=== PATIENT | male | born 1975 | race Caucasian/White ===

== ENCOUNTER → 2019-02-22 | Outpatient (REF) ==
[~2019-02-22] MED LIST: CEPH-13 PO; FAMO20TA28 PO; HYDR-385 PO; IBUP-1618 PO
== END ==
LOC: AUD 11:00
PROVIDERS: ATTEND Internal Medicine
DX: Z01.12 Encounter for hearing conservation and treatment (principal)
CPT/HCPCS: 92552

== ENCOUNTER → 2019-04-02 | Outpatient (CLI) | payer BC | LOC: LAB 13:08 | PROVIDERS: ATTEND Surgery | DX: L72.0 Epidermal cyst (principal) | CPT/HCPCS: 88305 ==

== ENCOUNTER → 2019-05-20 | Outpatient (CLI) | payer BC ==
--- NOTE | 2019-05-20 09:57 | RADIOLOGY IMAGING REPORT ---
FACILITY: [facility] - [place] PATIENT NAME: Miller Grant : 1975 MR: [id number] V: [id number] EXAM DATE: ORDERING PHYSICIAN: DEONTE SWAN TECHNOLOGIST: [place] [facility] [place] : 1975 Visit/Account:[id number] Date of Sevice: 05/20/2019 Chest 2 views: HISTORY: Unspecified bacterial pneumonia COMPARISON: 05/12/2019 FINDINGS: Frontal and lateral chest: Cardiomediastinal silhouette is within normal limits. There is no infiltrate or pleural effusion. No pneumothorax. Pulmonary vasculature is normal. Osseous structures are within normal limits. IMPRESSION: No evidence of acute cardiopulmonary abnormality. Report Dictated By: Keyanna Cage MD at 05/20/2019 9:49 AM Report E-Signed By: Keyanna Cage MD at 05/20/2019 9:51 AM WSN:[id number]
== END ==
LOC: RAD 08:52
PROVIDERS: ATTEND Family Medicine
DX: J15.9 Unspecified bacterial pneumonia (principal)
CPT/HCPCS: 71046